=== PATIENT | male | born 1960 | race Caucasian/White ===

== ENCOUNTER 2020-04-08 11:48 | Emergency (ER) | payer OTHER ==
[~2020-04-08] VITALS: Ht 167.6 cm; Wt 91.2 kg
[2020-04-08] MEDS ORDERED: ASPI81CH33 PO (12:05)
[2020-04-08] MEDS ORDERED: LISI-538 (12:05)
[2020-04-08] MEDS ORDERED: ATOR40TA75 PO (12:06)
[2020-04-08] MEDS ORDERED: METF-877 PO (12:06)
[2020-04-08] MEDS ORDERED: FLOM0.4C39 PO (12:06)
[2020-04-08 12:31] LABS: BASO # 0.1 10^3/uL (0.0-0.2); BASO % 1.2 % (0.0-1.0); EOS # 0.2 10^3/uL (0.0-0.5); EOS % 2.2 % (0.0-3.0); HEMATOCRIT 42.4 % (42.0-52.0); HEMOGLOBIN 14.8 g/dl (13.5-17.5); LYMPH # 3.3 10^3/uL (1.5-5.0); LYMPH % 37.4 % (24.0-44.0); MEAN CORPUSCULAR HEMOGLOBIN 31.2 pg (27.0-33.0); MEAN CORPUSCULAR HGB CONC 34.9 g/dl (32.0-36.5); MEAN CORPUSCULAR VOLUME 89.3 fl (80.0-96.0); MONO # 0.6 10^3/uL (0.0-0.8); MONO % 7.4 % (0.0-5.0); NEUTROPHILS # 4.5 10^3/uL (1.5-8.5); NEUTROPHILS % 51.5 % (36.0-66.0); PLATELET COUNT, AUTOMATED 273 10^3/uL (150-450); RED BLOOD COUNT 4.75 10^6/uL (4.30-6.10); WHITE BLOOD COUNT 8.7 10^3/uL (4.0-10.0)
--- NOTE | 2020-04-08 12:32 | REP ---
Clinical: Chest pain. Comparison: None. Findings: Mediastinum and cardiac silhouette are stable. Lung avina demonstrate chronic-appearing interstitial changes along with presumed calcified granulomata in the bilateral lower lobes. No consolidation. No effusion. No pneumothorax. Skeletal structures are intact. Impression: No prior examinations available for comparison. No focal consolidation or effusion. Presumed calcified granulomata in the lower lobes. Consider follow-up outpatient chest CT for further investigation and confirmation. Electronically Signed by Gonzales Mcgovern MD 04/08/2020 12:23 P
[2020-04-08 13:05] LABS: ALBUMIN 3.7 GM/DL (3.2-5.2); ALT/SGPT 35 U/L (12-78); BILIRUBIN,DIRECT 0.1 MG/DL (0.0-0.2); BILIRUBIN,TOTAL 0.4 MG/DL (0.2-1.0); BLOOD UREA NITROGEN 13 MG/DL (7-18); CALCIUM LEVEL 9.2 MG/DL (8.5-10.1); CARBON DIOXIDE LEVEL 22 MEQ/L (21-32); CHLORIDE LEVEL 99 MEQ/L (98-107); CREATININE FOR GFR 0.98 MG/DL (0.70-1.30); GLOMERULAR FILTRATION RATE > 60.0 (>56); GLUCOSE, FASTING 522 MG/DL (70-100); NT-PRO BNP 35 PG/ML (<125); POTASSIUM SERUM 4.4 MEQ/L (3.5-5.1); SODIUM LEVEL 130 MEQ/L (136-145); TOTAL PROTEIN 7.6 GM/DL (6.4-8.2)
[2020-04-08] MEDS ORDERED: ASPIRIN 325 MG TAB PO ONE (13:15)
[2020-04-08] MEDS ORDERED: NS 1,000 ML IV ONE (13:15)
[2020-04-08] MEDS ORDERED: lisinopriL 20 MG TAB PO ONE (13:15)
[2020-04-08] MEDS ORDERED: metFORMIN (GLUCOPHAGE) 1000 MG TABLET PO ONE (13:15)
[2020-04-08 15:21] VITALS: BP 151/76
--- NOTE | 2020-04-08 16:55 | ECGEPIP ---
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
--- NOTE | 2020-04-08 16:56 | ECGEPIP ---
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
== END 2020-04-08 15:44 | disposition home or self-care (01) ==
LOC: M ED 11:48
DX: R07.9 Chest pain, unspecified (principal); E11.65 Type 2 diabetes mellitus with hyperglycemia; I10 Essential (primary) hypertension; Z79.82 Long term (current) use of aspirin; Z79.84 Long term (current) use of oral hypoglycemic drugs; Z79.899 Other long term (current) drug therapy; Z95.818 Presence of other cardiac implants and grafts

== ENCOUNTER 2020-08-20 18:38 | Emergency (ER) | payer OTHER ==
[~2020-08-20] VITALS: Ht 167.6 cm; Wt 93.8 kg
[~2020-08-20 18:38] MED LIST: ASPI81CH33 PO; ATOR40TA75 PO; FLOM0.4C39 PO; LISI-538; METF-877 PO
[2020-08-20] MEDS ORDERED: ADME100I2 (18:53)
[2020-08-20] MEDS ORDERED: GABA-843 (18:53)
[2020-08-20] MEDS ORDERED: OZEM2INJ (18:53)
[2020-08-20] MEDS ORDERED: METO1TAB32 (18:53)
[2020-08-20] MEDS ORDERED: BASA100I (18:53)
[2020-08-20] MEDS ORDERED: LISI30TA4 (18:53)
[2020-08-20 19:55] LABS: BASO # 0.1 10^3/uL (0.0-0.2); BASO % 0.9 % (0.0-1.0); EOS # 0.2 10^3/uL (0.0-0.5); EOS % 2.9 % (0.0-3.0); HEMOGLOBIN 13.6 g/dl (13.5-17.5); LYMPH # 2.7 10^3/uL (1.5-5.0); LYMPH % 42.1 % (24.0-44.0); MEAN CORPUSCULAR HEMOGLOBIN 30.3 pg (27.0-33.0); MEAN CORPUSCULAR HGB CONC 33.2 g/dl (32.0-36.5); MEAN CORPUSCULAR VOLUME 91.3 fl (80.0-96.0); MONO # 0.7 10^3/uL (0.0-0.8); MONO % 10.1 % (0.0-5.0); NEUTROPHILS # 2.8 10^3/uL (1.5-8.5); NEUTROPHILS % 43.7 % (36.0-66.0); PLATELET COUNT, AUTOMATED 265 10^3/uL (150-450); RED BLOOD COUNT 4.49 10^6/uL (4.30-6.10); WHITE BLOOD COUNT 6.5 10^3/uL (4.0-10.0)
[2020-08-20 20:34] LABS: INR 0.94; PROTHROMBIN TIME 12.8 SECONDS (12.5-14.3)
[2020-08-20 20:35] LABS: PARTIAL THROMBOPLASTIN TIME 24.8 SECONDS (24.2-38.5)
[2020-08-20 20:40] LABS: ALBUMIN 3.4 GM/DL (3.2-5.2); ALT/SGPT 37 U/L (12-78); BILIRUBIN,DIRECT < 0.1 MG/DL (0.0-0.2); BILIRUBIN,TOTAL 0.4 MG/DL (0.2-1.0); BLOOD UREA NITROGEN 11 MG/DL (7-18); CALCIUM LEVEL 8.6 MG/DL (8.5-10.1); CARBON DIOXIDE LEVEL 23 MEQ/L (21-32); CHLORIDE LEVEL 101 MEQ/L (98-107); CK-MB VALUE MASS 2.1 NG/ML (<3.6); CPK CREATINE PHOSPHOKINASE 150 U/L (39-308); CREATININE FOR GFR 1.11 MG/DL (0.70-1.30); FREE T4 0.96 NG/DL (0.76-1.46); GLOMERULAR FILTRATION RATE > 60.0 (>56); GLUCOSE, FASTING 527 MG/DL (70-100); LIPASE 108 U/L (73-393); NT-PRO BNP 39 PG/ML (<125); POTASSIUM SERUM 4.4 MEQ/L (3.5-5.1); SODIUM LEVEL 134 MEQ/L (136-145); TOTAL PROTEIN 6.9 GM/DL (6.4-8.2); TROPONIN I < 0.02 NG/ML (< 0.10)
[2020-08-20] MEDS ORDERED: HumuLIN R (REGULAR) INSULIN (NovoLIN R) **100U/ML** PER UNIT IV ONE ×2 (21:00→22:45)
--- NOTE | 2020-08-20 22:13 | REPVR ---
PROCEDURE INFORMATION: Exam: US Duplex Lower Extremity Veins, Bilateral Exam date and time: 08/20/2020 9:43 PM Age: 60 years old Clinical indication: Edema, localized; Lower extremity, bilateral; Additional info: Edema R/O dvt TECHNIQUE: Imaging protocol: Real-time duplex ultrasound of the extremities with 2-D samano scale, color Doppler flow and spectral waveform analysis with image documentation. Complete exam focused on the bilateral lower extremity veins. COMPARISON: No relevant prior studies available. FINDINGS: Right deep veins: Unremarkable. The common femoral, femoral and popliteal veins are patent without thrombus. Normal Doppler waveforms. Normal compressibility and/or augmentation response. Right superficial veins: Saphenofemoral junction is patent without thrombus. Left deep veins: Unremarkable. The common femoral, femoral and popliteal veins are patent without thrombus. Normal Doppler waveforms. Normal compressibility and/or augmentation response. Left superficial veins: Saphenofemoral junction is patent without thrombus. Soft tissues: Unremarkable. IMPRESSION: No sonographic evidence of deep vein thrombosis. Electronically signed by: Dayton Rivera On 08/20/2020 22:12:46 PM
[2020-08-20] MEDS ORDERED: ISOVUE-370 76% 100ML VIAL As Ordered ONE (22:26)
--- NOTE | 2020-08-20 22:59 | REPVR ---
PROCEDURE INFORMATION: Exam: CT Angiography Chest With Contrast Exam date and time: 08/20/2020 10:41 PM Age: 60 years old Clinical indication: Chest pain; Additional info: Chest pain, SOB TECHNIQUE: Imaging protocol: Computed tomographic angiography of the chest with intravenous contrast. Axial, coronal and sagittal reformatted images were created and reviewed. 3D rendering (Not supervised by radiologist): MIP and/or 3D reconstructed images were created by the technologist. Radiation optimization: All CT scans at this facility use at least one of these dose optimization techniques: automated exposure control; mA and/or kV adjustment per patient size (includes targeted exams where dose is matched to clinical indication); or iterative reconstruction. Contrast material: ISOVUE 370; Contrast volume: 75 ml; Contrast route: INTRAVENOUS (IV); COMPARISON: CR PORTABLE CHEST X-RAY 04/08/2020 12:11 PM FINDINGS: Pulmonary arteries: Contrast opacification satisfactory. No intraluminal filling defect. Aorta: Unremarkable. No aneurysm or dissection. Lungs: Mild central peribronchial thickening, suggestive of airway inflammation. Mild linear stranding and groundglass, likely due to atelectasis and/or scarring. No focal consolidation. Scattered calcified granulomata. Pleural space: Unremarkable. No pneumothorax. No pleural effusion. Heart: Unremarkable. No cardiomegaly. No pericardial effusion. Mediastinal space: Mild nonspecific distal esophageal wall thickening, suggesting chronic reflux/esophagitis. Lymph nodes: No pathologically enlarged lymph nodes. Liver: Diffuse hepatic steatosis. Coarse calcified hepatic granulomata. Spleen: Coarse calcified splenic granulomata. Kidneys and ureters: 5.2 cm simple left renal cyst. Bones/joints: No acute osseous abnormality. Osteopenia. Degenerative changes. Soft tissues: Grossly unremarkable. IMPRESSION: 1. No CT evidence of pulmonary embolism. 2. Additional findings, as above. COMMENTS: Consistent with the [employer]'s Incidental Findings Committee white paper (J Am Yfn Radiol 2018): Any incidental renal lesion less than 1 cm or classified as too small to characterize, or any incidental cystic renal lesion characterized as simple-appearing, is likely benign. No follow-up imaging is recommended for these lesions per consensus recommendations based on imaging criteria. Electronically signed by: Dayton Rivera On 08/20/2020 22:58:37 PM
[2020-08-20 23:37] VITALS: O2SAT 98
[2020-08-21] VITALS: BP 156/86
--- NOTE | 2020-08-22 18:46 | ECGEPIP ---
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
== END 2020-08-21 00:13 | disposition home or self-care (01) ==
LOC: M ED 18:38
DX: R07.9 Chest pain, unspecified (principal); R05 Cough; E11.65 Type 2 diabetes mellitus with hyperglycemia; R22.43 Localized swelling, mass and lump, lower limb, bilateral; N28.1 Cyst of kidney, acquired; M85.80 Other specified disorders of bone density and structure, unspecified site; D73.9 Disease of spleen, unspecified; I10 Essential (primary) hypertension; E78.5 Hyperlipidemia, unspecified; I25.10 Atherosclerotic heart disease of native coronary artery without angina pectoris; K57.32 Diverticulitis of large intestine without perforation or abscess without bleeding; Z79.4 Long term (current) use of insulin; Z79.82 Long term (current) use of aspirin; Z79.899 Other long term (current) drug therapy
CPT/HCPCS: 71275; 80048; 80076; 82550; 82553; 83690; 83880; 84439; 84443; 85025; 85610; 85730; 87486; 87581; 87633; 87798; 93005; 93041; 93970; 94760; 96374; 96376; 99285; Q9967

== ENCOUNTER → 2022-01-26 | Outpatient (REF) | payer OTHER ==
[~2022-01-26] MED LIST changes: +ADME100I2; +BASA100I; +GABA-282; -LISI-538; +LISI20TA33; +LISI30TA4; +METO1TAB32; +OZEM2INJ
[2022-01-26 18:16] LABS: CREATININE, URINE 65.7 MG/DL; MALB URINE SIEMENS 20.8 MG/L; MAU/CREAT RATIO 31.6 MCG/MG (0.0-30.0)
== END ==
LOC: M LAB REF 16:38
PROVIDERS: ATTEND Nurse Practitioner Family
DX: E11.65 Type 2 diabetes mellitus with hyperglycemia (principal)

== ENCOUNTER 2023-09-15 15:02 | Observation (INO) | payer OTHER ==
[~2023-09-15] VITALS: Ht 167.6 cm; Wt 88.8 kg
[2023-09-15 16:08] LABS: BASO # 0.1 10^3/uL (0.0-0.2); BASO % 1.3 % (0.0-1.0); EOS # 0.3 10^3/uL (0.0-0.5); EOS % 3.6 % (0.0-3.0); HEMATOCRIT 43.5 % (42.0-52.0); HEMOGLOBIN 14.7 g/dl (13.5-17.5); LYMPH # 3.8 10^3/uL (1.5-5.0); LYMPH % 41.3 % (24.0-44.0); MEAN CORPUSCULAR HEMOGLOBIN 29.9 pg (27.0-33.0); MEAN CORPUSCULAR HGB CONC 33.8 g/dl (32.0-36.5); MEAN CORPUSCULAR VOLUME 88.4 fl (80.0-96.0); MONO # 0.8 10^3/uL (0.0-0.8); MONO % 8.2 % (2.0-8.0); NEUTROPHILS # 4.2 10^3/uL (1.5-8.5); NEUTROPHILS % 45.4 % (36.0-66.0); PLATELET COUNT, AUTOMATED 310 10^3/uL (150-450); RED BLOOD COUNT 4.92 10^6/uL (4.30-6.10); WHITE BLOOD COUNT 9.3 10^3/uL (4.0-10.0)
[2023-09-15 16:32] LABS: BLOOD UREA NITROGEN 10 MG/DL (9-23); CALCIUM LEVEL 9.2 MG/DL (8.3-10.6); CARBON DIOXIDE LEVEL 25 MMOL/L (20-31); CHLORIDE LEVEL 104 MMOL/L (98-107); CK-MB VALUE MASS 2.6 NG/ML (<3.6); CREATININE FOR GFR 0.64 MG/DL (0.70-1.30); GLOMERULAR FILTRATION RATE > 60.0 (>49); GLUCOSE, FASTING 119 MG/DL (74-106); POTASSIUM SERUM 4.4 MMOL/L (3.5-5.1); SODIUM LEVEL 138 MMOL/L (136-145)
[2023-09-15 16:35] LABS: CPK CREATINE PHOSPHOKINASE 146 U/L (46-171); MB/CK RELATIVE INDEX 1.78 (< OR =4)
[2023-09-15] MEDS ORDERED: INSU100I38 (16:54)
[2023-09-15] MEDS ORDERED: DULO1CAP6 (16:54)
[2023-09-15] MEDS ORDERED: CLOP75TA2 (16:54)
[2023-09-15] MEDS ORDERED: JARD1TAB3 (16:54)
[2023-09-15] MEDS ORDERED: FURO80TA2 (16:54)
[2023-09-15] MEDS ORDERED: INSU100I24 (16:54)
[2023-09-15] MEDS ORDERED: ACETAMINOPHEN TAB 650MG DOSE (2X325MG) PO PRN (20:35)
[2023-09-15] MEDS ORDERED: GLUCAGON INJ 1MG VIAL SC PRN (20:35)
[2023-09-15] MEDS ORDERED: GLUCOSE 4GM CHEW TABLET PO PRN (20:35)
[2023-09-15] MEDS ORDERED: MOM 30ML SUSPENSION UDC PO PRN (20:35)
[2023-09-15] MEDS ORDERED: DEXTROSE 50% 50ML SYRINGE IV PRN (20:35)
[2023-09-15 20:36] LABS: RSV AMPLIFICATION NEGATIVE (NEGATIVE)
[2023-09-15] MEDS ORDERED: INSULIN LISPRO (NovoLOG) PER UNIT SC SCH (21:00)
[2023-09-15] MEDS ORDERED: LEVEMIR (INSULIN DETEMIR) 1 UNITS/0.01ML SC SCH (21:00)
[2023-09-15] MEDS ORDERED: JARD1TAB3 PO (22:21)
[2023-09-15] MEDS ORDERED: CLOP75TA2 PO (22:21)
[2023-09-15] MEDS ORDERED: FURO80TA2 PO (22:21)
[2023-09-15] MEDS ORDERED: DULO1CAP6 PO (22:21)
[2023-09-15] MEDS ORDERED: ASPI-161 PO (22:21)
[2023-09-15] MEDS ORDERED: GABA-282 PO (22:21)
[2023-09-15] MEDS ORDERED: SEMA1PEN2 SQ (22:21)
[2023-09-15] MEDS ORDERED: INSU100I38 SC (22:21)
[2023-09-15] MEDS ORDERED: INSU100I24 SC ×2 (22:21)
[2023-09-15] MEDS ORDERED: HOME MED LIST COMPLETE! XX SCH (22:25)
[2023-09-15] MEDS: GABAPENTIN 300 MG CAP PO SCH (23:04)
[2023-09-16 06:59] LABS: HEMATOCRIT 44.9 % (42.0-52.0); HEMOGLOBIN 14.7 g/dl (13.5-17.5); MEAN CORPUSCULAR HEMOGLOBIN 29.9 pg (27.0-33.0); MEAN CORPUSCULAR HGB CONC 32.7 g/dl (32.0-36.5); MEAN CORPUSCULAR VOLUME 91.3 fl (80.0-96.0); PLATELET COUNT, AUTOMATED 269 10^3/uL (150-450); RED BLOOD COUNT 4.92 10^6/uL (4.30-6.10); WHITE BLOOD COUNT 7.2 10^3/uL (4.0-10.0)
[2023-09-16 08:04] LABS: ALBUMIN 3.2 G/DL (3.2-5.2); ALKALINE PHOSPHATASE 83 U/L (46-116); ALT/SGPT 23 U/L (7.0-40); AST/SGOT 23 U/L (<34); BILIRUBIN,TOTAL 0.6 MG/DL (0.3-1.2); BLOOD UREA NITROGEN 10 MG/DL (9-23); CARBON DIOXIDE LEVEL 23 MMOL/L (20-31); CHLORIDE LEVEL 107 MMOL/L (98-107); CREATININE FOR GFR 0.65 MG/DL (0.70-1.30); FREE T4 0.89 NG/DL (0.89-1.76); GLOMERULAR FILTRATION RATE > 60.0 (>49); GLUCOSE, FASTING 174 MG/DL (74-106); POTASSIUM SERUM 4.1 MMOL/L (3.5-5.1); SODIUM LEVEL 140 MMOL/L (136-145); THYROID STIMULATING HORMONE 1.986 uIU/ML (0.55-4.78); TOTAL PROTEIN 6.5 G/DL (5.7-8.2)
[2023-09-16] MEDS ORDERED: DULoxetine 30MG CAPSULE (CYMBALTA) PO SCH (09:00)
[2023-09-16] MEDS ORDERED: FUROSEMIDE 80 MG TAB PO SCH (09:00)
[2023-09-16] MEDS ORDERED: CLOPIDOGREL 75 MG TAB PO SCH (09:00)
[2023-09-16] MEDS ORDERED: ATORVASTATIN 20 MG TAB PO SCH (09:00)
[2023-09-16] MEDS ORDERED: ENOXAPARIN 40MG/0.4ML SYRINGE (J1650 PER 10MG) SC SCH (09:00)
[2023-09-16] MEDS ORDERED: JARDIANCE 25 MG PO SCH (09:00)
[2023-09-16] MEDS ORDERED: ASPIRIN 81MG ENTERIC TABLET PO SCH (09:00)
[2023-09-16 09:31] VITALS: BP 118/73
[2023-09-16] MEDS: INSULIN LISPRO (NovoLOG) PER UNIT SC SCH ×2 (09:31→12:52)
[2023-09-16] MEDS: GABAPENTIN 300 MG CAP PO SCH ×2 (09:31→15:09)
[2023-09-16 13:36] VITALS: BP 135/70; TEMP 98.8; O2SAT 98
== END 2023-09-16 17:30 | disposition home or self-care (01) ==
LOC: M ED 15:02 → EDBD 15:02 → M ED INP 15:03 → M MS4PR 09-16 13:46
PROVIDERS: ADMIT Internal Medicine; ATTEND Internal Medicine
DX: R55 Syncope and collapse (principal); I25.10 Atherosclerotic heart disease of native coronary artery without angina pectoris; Z95.1 Presence of aortocoronary bypass graft; Z95.5 Presence of coronary angioplasty implant and graft; I50.9 Heart failure, unspecified; I11.0 Hypertensive heart disease with heart failure; E78.5 Hyperlipidemia, unspecified; E11.42 Type 2 diabetes mellitus with diabetic polyneuropathy; Z91.018 Allergy to other foods; Z79.899 Other long term (current) drug therapy; Z79.82 Long term (current) use of aspirin; Z79.02 Long term (current) use of antithrombotics/antiplatelets; Z79.4 Long term (current) use of insulin; Z79.85 Long-term (current) use of injectable non-insulin antidiabetic drugs; Z79.84 Long term (current) use of oral hypoglycemic drugs
CPT/HCPCS: 36415; 70450; 71045; 72125; 80048; 80053; 82550; 82553; 83735; 84439; 84443; 85025; 85027; 87631; 93005; 93041; 94760; 96372; 99285; J1650; J1815